=== PATIENT | female | born 1935 | race Caucasian/White ===

== ENCOUNTER 2019-11-09 09:36 | Emergency (ER) | payer MEDICARE, SELFPAY ==
--- NOTE | ~2019-11-09 | CT_ITS ---
EXAMINATION: CT brain wo con INDICATION: Headache and dizziness COMPARISON: None TECHNIQUE: Standard unenhanced head CT. The dose-length product (DLP) was 605.33 mGy-cm. The mA was a djusted according to patient size. Iterative reconstruction technique was employed. FINDINGS: There is no acute intraparenchymal hemorrhage. No evidence of mass lesion. No evidence of a cute infarction. There is mild periventricular and subcortical hypodensity probably related to small vessel ischemic disease. There is mild prominence of the sulci and ventricles related to cerebral atr ophy. Intracranial calcified cerebral atherosclerosis is noted. There are no extra-axial collections. There is no mass effect or midline shift. The orbits and soft tissues are unremarkable. The visuali zed sinuses and mastoid air cells are well aerated. IMPRESSION: 1. No acute intracranial abnormality. 2. Age related findings. Reviewed, dictated and finalized at location A.
[2019-11-09 09:36] VITALS: BP 162/84; PULSE 108; RESP 20; TEMP 36.9; O2SAT 96
[2019-11-09] MEDS: SODIUM CHLORIDE 0.9% IV 1,000 ML 999 ML IV CONT (10:00)
[2019-11-09] MEDS: MECLIZINE HCL 25 MG TABLET PO (10:03)
--- NOTE | 2019-11-09 10:03 | ED.DIZZY ---
HPI - Dizziness General Chief Complaint: Dizziness Stated Complaint: DIZZY/ECKERT/N/V/D Time Seen by Provider: 11/09/19 09:40 History of Present Illness HPI Narrative: Patient is an 84-year-old female who presents the ER with dizziness. Ongoing for last 3 days. Rotational dizziness with nausea vomiting. Occasional sweats. No fever/chills/sweats. She is without runny nose/sore throat/productive cough. No ringing in the ears. Has not had similar symptoms before. Associated with a frontal headache that is nonradiating. Related Data Home Medications Medication Instructions Recorded Confirmed I-Caps 11/09/19 allopurinol 11/09/19 amlodipine 11/09/19 latanoprost 11/09/19 pravastatin 11/09/19 Allergies Allergy/AdvReac Type Severity Reaction Status Date / Time adhesive tape Allergy Unknown Verified 11/21/15 15:09 azithromycin Allergy Unknown Vomiting Verified 01/02/18 11:20 Review of Systems Review of Systems: All systems reviewed & are unremarkable except as noted in HPI and below Constitutional: Constitutional: Denies chills, Denies fever(s) and Denies weakness ENT: Reports vertigo, Reports dizziness, Denies nasal congestion and Denies sore throat Respiratory: Respiratory: Denies dyspnea and Denies wheezing Gastrointestinal: Gastrointestinal: Reports nausea and Reports vomiting Neurologic: Reports system reviewed and no additional complaints, except as documented PMFSH Past Medical History Medical History (Updated 11/09/19 @ 12:06 by Leeroy Briggs MD) Anxiety Chronic kidney disease, stage 4 (severe) CKD (chronic kidney disease), stage III Diverticulitis of large intestine without perforation or abscess Glaucoma Gout History of breast cancer Pure hypercholesterolemia Surgical History Surgical History (Updated 11/09/19 @ 12:04 by Leeroy Briggs MD) H/O mastectomy Family History Family History (Updated 02/22/16 @ 23:19 by DOCTOR UNKNOWN) Father Family history of diabetes mellitus in first degree relative Sibling Family history of diabetes mellitus in first degree relative Mother Family history of coronary artery disease Social History Social History Smoking status: Never smoker Alcohol intake: never Exam Narrative: Exam Narrative: GENERAL: Well-appearing, well-nourished, and in no acute distress. HEAD: Normocephalic, atraumatic. Eyes: PERRLA, EOMI, no nystagmus. ENT: Mucous membranes moist. TMs normal bilaterally. CHEST: Clear to auscultation. No respiratory distress. HEART: Regular rate and rhythm. Normal peripheral pulses. EXTREMITIES: Normal range of motion. No edema. SKIN: Warm, dry, no rash. NEURO: No focal deficits. Clear speech, no facial droop. Alert and oriented x3. Course Course Emergency Course: Has ambulated without issue here. Feels better with meclizine and IV fluid. Informed of results. Discharge home. Vital Signs Vital signs: Vital Signs Temperature 98.5 F 11/09/19 09:36 Pulse Rate 108 H 11/09/19 09:36 Respiratory Rate 20 11/09/19 09:36 Blood Pressure 162/84 H 11/09/19 09:36 Pulse Oximetry 96 11/09/19 09:36 Temperature 98.5 F 11/09/19 09:36 Pulse Rate 82 11/09/19 11:36 Respiratory Rate 18 11/09/19 11:36 Blood Pressure 149/74 H 11/09/19 11:36 Pulse Oximetry 99 11/09/19 11:36 MDM - Dizziness Lab Data Result diagrams: 11/09/19 10:04 11/09/19 10:59 Labs: Lab Results 11/09/19 11/09/19 11/09/19 Range/Units 10:04 10:59 11:36 WBC 8.4 (4.5-10.0) K/mm3 RBC 4.49 (4.2-5.4) M/mm3 Hgb 14.6 (12.0-15.0) g/dL Hct 44.5 (37.0-47.0) % MCV 99.1 (80-100) fl MCH 32.5 (26-34) pg MCHC 32.8 (32-36) g/dl RDW 12.9 (11.5-14.5) % Plt Count 206 (150-375) k/mm3 MPV 10.0 (7.4-10.4) fl Immature Gran % (Auto) 0.2 (0-0.5) % Neut % (Auto) 81.1 H (45.5-73.1) % Lymph % (Auto) 14.8 L (18.3-44.2) % Harrison % (Auto) 2.9 (2
[2019-11-09 10:12] LABS: Basophils Percent Auto 0.5 % (0.2-1.2); Eosinophils Percent Auto 0.5 % (0-4.4); Hematocrit 44.5 % (37.0-47.0); Hemoglobin 14.6 g/dL (12.0-15.0); Immature Granulocyte Absolute 0.02 K/mm3 (0.00-0.031); Immature Granulocyte Percent A 0.2 % (0-0.5); Lymphocytes Absolute Auto 1.24 K/mm3 (0.9-3.2); Lymphocytes Percent Auto 14.8 % (18.3-44.2); Mean Corpuscular HGB Conc 32.8 g/dl (32-36); Mean Corpuscular Hemoglobin 32.5 pg (26-34); Mean Corpuscular Volume 99.1 fl (80-100); Monocytes Absolute Auto 0.2 K/mm3 (0.1-0.6); Monocytes Percent Auto 2.9 % (2.6-8.5); Neutrophils Absolute Auto 6.8 K/mm3 (1.3-6.7); Neutrophils Percent Auto 81.1 % (45.5-73.1); Platelet Count Result 206 k/mm3 (150-375); Red Blood Count 4.49 M/mm3 (4.2-5.4); Red Cell Distribution Width 12.9 % (11.5-14.5); White Blood Count 8.4 K/mm3 (4.5-10.0)
[2019-11-09 11:23] LABS: Blood Urea Nitrogen 21 mg/dL (7-17); Calcium 10.5 mg/dL (8.4-10.2); Carbon Dioxide 27 mmol/L (22-30); Chloride 106 mmol/L (98-107); Estimated CRCL calculation 21 ml/min; Estimated Glomerular Filt Rate 36; Glucose 127 mg/dL (65-105); Sodium 139 mmol/L (137-145)
[2019-11-09 11:36] VITALS: BP 149/74; PULSE 82; RESP 18; O2SAT 99
[2019-11-09 11:44] LABS: Add Urine Microscopic? YES; Appearance Urine Clear (Clear); Bacteria Urine Trace /hpf; Bilirubin Urine Negative (Negative); Blood Urine Negative (Negative); Color Urine Straw (Yellow); Glucose Urine UA Negative (Negative); Ketones Urine Negative (Negative); Leukocyte Esterase Ur Negative LEU/UL (Negative); Nitrate Urine Negative (Negative); Protein Urine 3+ mg/dL (Negative); RBC Urine 0-2 /hpf (0-2); Specific Grav Ur 1.009 (1.001-1.035); Squamous Epithelial Cell Urine Rare /hpf (Few); Urobilinogen Urine Negative mg/dL (<2.0); WBC Urine 0-3 /hpf
[2019-11-09 12:28] VITALS: BP 115/87; PULSE 78; RESP 16; O2SAT 97
[2019-11-09 12:31] VITALS: BP 120/88; PULSE 74; RESP 18; TEMP 36.7; O2SAT 99
== END 2019-11-09 12:32 | disposition home or self-care (01) ==
PROVIDERS: Emergency Provider Emergency Medicine; PCP Family Medicine
DX: H81.10 Benign paroxysmal vertigo, unspecified ear (principal); N18.4 Chronic kidney disease, stage 4 (severe); H40.9 Unspecified glaucoma; M10.9 Gout, unspecified; E78.00 Pure hypercholesterolemia, unspecified; Z85.3 Personal history of malignant neoplasm of breast; Z90.10 Acquired absence of unspecified breast and nipple
CPT/HCPCS: 36415; 70450; 80048; 81001; 85025; 96360; 99284; A9270; J7030

== ENCOUNTER 2019-11-11 10:07 | Emergency (ER) | payer MEDICARE, SELFPAY ==
--- NOTE | 2019-11-11 10:08 | ECG_ITS ---
Measurements Intervals [place] Rate: 90 P: 60 DE: 173 QRS: -4 QRSD: 72 T: 3 QT: 341 QTc: 419 Interpretive Statements SINUS RHYTHM LOW QRS VOLTAGE IN PRECORDIAL LEADS BORDERLINE T WAVE ABNORMALITY- INFERIOR LEADS BASELINE ARTIFACT- III, AVF, V4-V5 BORDERLINE ECG Electronically Signed On 11-11-2019 11:37:19 CDT by Lex Dent D.O.
[2019-11-11 10:10] VITALS: BP 179/76; PULSE 91; RESP 22; TEMP 36.8; O2SAT 95
[2019-11-11] MEDS: MECLIZINE HCL 12.5 MG TABLET PO (11:23)
--- NOTE | 2019-11-11 13:10 | ED.GENADULT ---
HPI - General Adult General Chief complaint: Dizziness Stated complaint: DIZZINESS,NAUSEA Time Seen by Provider: 11/11/19 10:11 History of Present Illness HPI narrative: Patient is an 84-year-old female who presents ER with dizziness and nausea. Patient has recently been seen for vertigo. She had sudden onset vertigo symptoms this morning after getting out of bed. She took her meclizine and her Zofran but vomited 20 minutes later. Her vertigo is more persistent that has been in the past when it was only lasting a couple seconds. She opted to come here to be evaluated. No new symptoms outside of the dizziness. She has had some whooshing sounds in her right ear that sounds like water but has had no ear drainage or ear pain. Related Data Home Medications Medication Instructions Recorded Confirmed I-Caps 11/09/19 allopurinol 11/09/19 amlodipine 11/09/19 latanoprost 11/09/19 pravastatin 11/09/19 Allergies Allergy/AdvReac Type Severity Reaction Status Date / Time adhesive tape Allergy Unknown Verified 11/21/15 15:09 azithromycin Allergy Unknown Vomiting Verified 01/02/18 11:20 Review of Systems Review of Systems: All systems reviewed & are unremarkable except as noted in HPI and below ENT: Reports vertigo Comments: Swishing sounds in right ear. Gastrointestinal: Gastrointestinal: Reports nausea and Reports vomiting PMFSH Past Medical History Medical History (Updated 11/11/19 @ 13:14 by Leeroy Briggs MD) Anxiety Chronic kidney disease, stage 4 (severe) CKD (chronic kidney disease), stage III Diverticulitis of large intestine without perforation or abscess Glaucoma Gout History of breast cancer Pure hypercholesterolemia Surgical History Surgical History (Updated 11/09/19 @ 12:04 by Leeroy Briggs MD) H/O mastectomy Family History Family History (Updated 02/22/16 @ 23:19 by DOCTOR UNKNOWN) Father Family history of diabetes mellitus in first degree relative Sibling Family history of diabetes mellitus in first degree relative Mother Family history of coronary artery disease Social History Social History Smoking status: Never smoker Alcohol intake: never Gender identity (if verbalized by the patient): Female Exam Narrative: Exam Narrative: GENERAL: Well-appearing, well-nourished, and in no acute distress. HEAD: Normocephalic, atraumatic. EYES: PERRL and EOMI. no nystagmus. ENT: Mucous membranes moist. TMs normal bilaterally without erythema or evidence of perforation. No purulence sitting behind the tympanic membrane. Skin cerumen in external ear canals bilaterally. NECK: Supple. CHEST: Clear to auscultation. No respiratory distress. HEART: Regular rate and rhythm. Normal peripheral pulses. EXTREMITIES: Normal range of motion. No edema. NEURO: Alert and oriented x3. Course Course Emergency Course: Feels much better. Discharge home. Recommend taking meclizine scheduled instead of as needed. Vital Signs Vital signs: Vital Signs Temperature 98.2 F 11/11/19 10:10 Pulse Rate 91 11/11/19 10:10 Respiratory Rate 22 H 11/11/19 10:10 Blood Pressure 179/76 H 11/11/19 10:10 Pulse Oximetry 95 11/11/19 10:10 Temperature 98.2 F 11/11/19 10:10 Pulse Rate 91 11/11/19 10:10 Respiratory Rate 22 H 11/11/19 10:10 Blood Pressure 179/76 H 11/11/19 10:10 Pulse Oximetry 95 11/11/19 10:10 Medical Decision Making Vital Signs Vital Signs: Vital Signs Temperature 98.2 F 11/11/19 10:10 Pulse Rate 91 11/11/19 10:10 Respiratory Rate 22 H 11/11/19 10:10 Blood Pressure 179/76 H 11/11/19 10:10 Pulse Oximetry 95 11/11/19 10:10 Temperature 98.2 F 11/11/19 10:10 Pulse Rate 91 11/11/19 10:10 Respiratory Rate 22 H 11/11/19 10:10 Blood Pressure 179/76 H 11/11/19 10:10 Pulse Oximetry 95 11/11/19 10:10 Discharge Plan Discharge Clinical Impression: Vertigo Patient Disposition: Home, Self-Care Condi
[2019-11-11 13:20] VITALS: BP 136/69; PULSE 80; RESP 15; O2SAT 95
== END 2019-11-11 13:23 | disposition home or self-care (01) ==
PROVIDERS: Emergency Provider Emergency Medicine; PCP Family Medicine
DX: R42 Dizziness and giddiness (principal); N18.4 Chronic kidney disease, stage 4 (severe); E78.00 Pure hypercholesterolemia, unspecified; M10.9 Gout, unspecified; H40.9 Unspecified glaucoma; Z85.3 Personal history of malignant neoplasm of breast; Z90.10 Acquired absence of unspecified breast and nipple; R94.31 Abnormal electrocardiogram [ECG] [EKG]
CPT/HCPCS: 93005; 99283; A9270

== ENCOUNTER 2020-11-02 11:45 | Outpatient (CLI) | payer MEDICARE, SELFPAY ==
--- NOTE | ~2020-11-02 | XR_ITS ---
EXAMINATION: XR abdomen/kub 1V DATE: 11/02/2020 12:21 INDICATION: Diarrhea, unspecified. TECHNIQUE: A supine view of the abdomen on 2 radiographs was obtained. COMPARISON: None. FINDINGS: There are no dilated loops of bowel. There is a small volume of stool in the colon. Surgica l clips in the right upper quadrant are likely from cholecystectomy. Calcifications in the pelvis are likely phleboliths. IMPRESSION: 1. Normal bowel gas pattern. Reviewed, dictated and finalized at location A.
[2020-11-02 12:23] LABS: Alanine Aminotransferase 21 U/L (4-35); Albumin Level 4.2 g/dL (3.5-5.1); Alkaline Phosphatase 53 U/L (38-126); Anion Gap 8 mmol/L (8-16); Aspartate Amino Transferase 35 U/L (14-36); Bilirubin,Total 0.5 mg/dL (0.2-1.3); Blood Urea Nitrogen 26 mg/dL (7-17); Calcium 9.6 mg/dL (8.4-10.2); Carbon Dioxide 24 mmol/L (22-30); Chloride 107 mmol/L (98-107); Estimated Glomerular Filt Rate 25; Glucose 120 mg/dL (65-105); Sodium 139 mmol/L (137-145)
== END 2020-11-02 11:46 | disposition home or self-care (01) ==
PROVIDERS: PCP Family Medicine; Visit Provider Nurse Practitioner Family
DX: R19.7 Diarrhea, unspecified (principal); N18.4 Chronic kidney disease, stage 4 (severe)
CPT/HCPCS: 36415; 74018; 80053

== ENCOUNTER → 2021-02-18 09:14 | Outpatient (REF) | payer MEDICARE, SELFPAY | LOC: ANHLAB 09:14 | PROVIDERS: PCP Family Medicine; Visit Provider Nurse Practitioner | DX: C44.329 Squamous cell carcinoma of skin of other parts of face (principal); C44.311 Basal cell carcinoma of skin of nose | CPT/HCPCS: 88305; 88331 ==

== ENCOUNTER 2021-12-25 14:02 | Outpatient (CLI) | payer MEDICARE, SELFPAY ==
--- NOTE | 2021-12-25 14:06 | ECHO_ITS ---
Patient Info Name: Ruth Jackson Age: 86 years : 1935 Gender: Female Ht: 62 in Wt: 136 lbs BSA: 1.65 m2 HR: 68 bpm BP: 144 / 56 mmHg Technical Quality: Fair Exam Date: 12/25/2021 2:44 PM Exam Location: [facility] Patient Status: Outpatient Admit Date: 12/25/2021 Staff Ordering Physician: Zoey Walker Cosmetic Account Coordinator: Kannna Washington RDCS, RT Attending Provider: Zoey Walker Referring Physician: Aaron REYES; Exam Type: CA echo doppler color flow Study Info Indications R01.1 - Cardiac murmur, unspecified Complete two-dimensional, color flow and Doppler transthoracic echocardiogram is performed. Strain analysis performed. Summary 1. Complete two-dimensional, color flow and Doppler transthoracic echocardiogram is performed. 2. Left ventricular chamber dimension is normal. 3. Left ventricular systolic function is normal, estimated at 60-65%. 4. The left ventricular diastolic function is grade I diastolic dysfunction. 5. E/e' 12.4 is mildly elevated. 6. Global longitudinal strain is abnormal at -14.7%. 7. There is mild aortic valve sclerosis. 8. There is mild aortic valve stenosis based on a peak velocity of 156 cm/s, mean gradient of 5 mmHg, and aortic valve area of 1.8 cm2. Left Ventricle Global longitudinal strain is abnormal at -14.7%. Left ventricular chamber dimension is normal. Left ventricular systolic function is normal, estimated at 60-65%. The left ventricular diastolic function is grade I diastolic dysfunction. E/e' 12.4 is mildly elevated. Right Ventricle Right ventricular systolic function is normal and with normal TAPSE 2.1 cm. Right ventricular chamber dimension is normal. Left Atria Left atrial chamber dimension is normal. Right Atria Right atrial chamber dimension is normal. Aortic Valve There is mild aortic valve stenosis based on a peak velocity of 156 cm/s, mean gradient of 5 mmHg, and aortic valve area of 1.8 cm2. The aortic valve is not well visualized. There is mild aortic valve sclerosis. There is no aortic valve regurgitation. Pulmonic Valve There is no pulmonic regurgitation. Mitral Valve There is no mitral valve stenosis. There is no mitral valve regurgitation. Tricuspid Valve There is no tricuspid valve regurgitation. Pericardium/Pleural There is no pericardial effusion. Inferior Vena Cava Normal inferior vena cava with >50% collapse upon inspiration consistent with normal right atrial pressure, 5 mmHg. Aorta The aortic root size at the sinus of Valsalva is normal. Left Ventricular Outflow Tract Name Value Normal LVOT 2D LVOT Diameter 1.9 cm LVOT Doppler LVOT Peak Gradient 4 mmHg LVOT Mean Gradient 2 mmHg LVOT VTI 24 cm LVOT VTI/AV VTI Ratio 0.7 LVOT Stroke Volume 65 ml LVOT CO 4.5 l/min LVOT CI 2.7 l/min/m2 Pulmonic Valve
== END 2021-12-25 14:03 | disposition home or self-care (01) ==
PROVIDERS: PCP Family Medicine; Visit Provider Nurse Practitioner Family
DX: R01.1 Cardiac murmur, unspecified (principal); I35.0 Nonrheumatic aortic (valve) stenosis
CPT/HCPCS: 93306

== ENCOUNTER 2023-02-05 14:00 | Outpatient (CLI) | payer MEDICARE, SELFPAY ==
[2023-02-05 15:06] LABS: Basophils Absolute Auto 0.1 K/mm3 (0.0-0.1); Basophils Percent Auto 0.9 % (0.2-1.2); Eosinophils Absolute Auto 0.2 K/mm3 (0-0.3); Eosinophils Percent Auto 2.7 % (0-4.4); Hematocrit 40.1 % (37.0-47.0); Immature Granulocyte Absolute 0.02 K/mm3 (0.00-0.031); Immature Granulocyte Percent A 0.3 % (0-0.5); Lymphocytes Absolute Auto 1.68 K/mm3 (0.9-3.2); Lymphocytes Percent Auto 25.1 % (18.3-44.2); Mean Corpuscular HGB Conc 32.4 g/dl (32-36); Mean Corpuscular Hemoglobin 33.1 pg (26-34); Mean Platelet Volume 9.7 fl (7.4-10.4); Monocytes Absolute Auto 0.5 K/mm3 (0.1-0.6); Monocytes Percent Auto 6.9 % (2.6-8.5); Neutrophils Absolute Auto 4.3 K/mm3 (1.3-6.7); Neutrophils Percent Auto 64.1 % (45.5-73.1); Platelet Count Result 230 k/mm3 (150-375); Red Blood Count 3.93 M/mm3 (4.2-5.4); Red Cell Distribution Width 12.5 % (11.5-14.5); White Blood Count 6.7 K/mm3 (4.5-10.0)
[2023-02-05 15:38] LABS: Appearance Urine Clear (Clear); Bacteria Urine None Seen /hpf; Bilirubin Urine Negative (Negative); Blood Urine Negative (Negative); Color Urine Yellow (Yellow); Glucose Urine UA Negative (Negative); Ketones Urine Trace mg/dL (Negative); Leukocyte Esterase Ur Trace LEU/UL (Negative); Nitrate Urine Negative (Negative); Protein Urine 3+ mg/dL (Negative); RBC Urine 0-2 /hpf (0-2); Specific Grav Ur 1.017 (1.001-1.035); Squamous Epithelial Cell Urine None seen /hpf (Few); Urobilinogen Urine 0.2 mg/dL (<2.0); WBC Urine 0-5 /hpf; pH Urine 5.5 (5.0-9.0)
[2023-02-05 15:45] LABS: Add Urine Microscopic? YES
[2023-02-05 16:21] LABS: Alanine Aminotransferase 19 U/L (6-35); Albumin Level 4.5 g/dL (3.5-5.1); Alkaline Phosphatase 69 U/L (38-126); Anion Gap 7 mmol/L (8-16); Aspartate Amino Transferase 35 U/L (14-36); Bilirubin,Total 0.5 mg/dL (0.2-1.3); Blood Urea Nitrogen 42 mg/dL (7-17); Calcium 11.1 mg/dL (8.4-10.2); Carbon Dioxide 27 mmol/L (22-30); Chloride 103 mmol/L (98-107); Estimated Glomerular Filt Rate 22; Glucose 110 mg/dL (65-110); Potassium 5.1 mmol/L (3.4-5.0); Sodium 137 mmol/L (137-145)
== END 2023-02-05 14:01 | disposition home or self-care (01) ==
PROVIDERS: PCP Family Medicine; Visit Provider Family Medicine
DX: N39.0 Urinary tract infection, site not specified (principal); R53.83 Other fatigue
CPT/HCPCS: 36415; 80053; 81001; 84443; 85025

== ENCOUNTER 2023-02-26 14:14 | Outpatient (CLI) | payer MEDICARE, SELFPAY ==
--- NOTE | ~2023-02-26 | DEXA_ITS ---
Bone Density Report Name: MARISOL CHATMAN Age: 87 Sex: Female Ethnicity: White Date of : 1935 Indication: postmenopausal; screening for osteoporosis; height loss; prior fracture; cancer; end stage renal disease; Referring Provider: JOE DEJESUS Study: Bone densitometry was performed. Exam Date: February 26, 2023 Accession number: [id number] Bone Density: Region BMD T-score Z-score Classification AP Spine(L1-L4) 1.162 1.0 3.9 Normal Femoral Neck (Left) 0.642 -1.9 0.7 Osteopenia Total Hip (Left) 0.836 -0.9 1.5 Normal Femoral Neck (Right) 0.698 -1.4 1.2 Osteopenia Total Hip (Right) 0.835 -0.9 1.5 Normal Total Hip Mean 0.836 -0.9 1.5 Normal World Health Organization criteria for BMD impression classify patients as: Normal (T-score at or above -1.0), Osteopenia (T-score between -1.0 and -2.5), or Osteoporosis (T-score at or below -2.5). 10-year Fracture Risk(1): Major Osteoporotic Fracture 20% Hip Fracture 5.6% Reported Risk Factors: [place] (), Neck BMD=0.642, BMI=25.7, previous fracture (1) FRAX(R) Version 3.08. Fracture probability calculated for an untreated patient. Fracture probability may be lower if the patient has received treatment. Clinical Information Provided by Patient: Has had a low trauma fracture Has used the following medications: Vitamin D, Calcium Has the following medical conditions: Cancer, End stage renal disease Patient maximum height was 63 Menopause Age: 45 No regular weight bearing exercise Does not regularly consume dairy products Onset of menses at age 14 Number of children 4 Impression: The patient has low bone mass, based on the Left Femoral Neck T-score. The patient has an estimated ten-year risk of hip fracture of 5.6% and an estimated ten-year risk of major fracture of 20%, based on the WHO FRAX algorithm. The patient has risk factors, including: previous fracture. Discussion: BONE DENSITY IS LOW AT ONE OR MORE SKELETAL SITES. THE PATIENT'S BMD AND CLINICAL RISK FACTORS CONTRIBUTE TO THIS PATIENT'S HIGH RISK OF FRACTURE. This patient's lowest T-score is low at one or more skeletal sites. It meets the World Health Organization's (WHO) criteria for ?low bone mass? (T-score between -1.0 and -2.5). The patient's 10-year risk of hip fracture and 10 year risk of a major osteoporotic fracture as calculated by FRAX exceeds the threshold where pharmacological therapy is recommended by the National Osteoporosis Foundation (NOF). However, all treatment decisions require clinical judgment and consideration of individual patient factors, including patient preferences, comorbidities, previous drug use, risk factors not captured in the FRAX model (e.g., frailty, falls, vitamin D deficiency, increased bone turnover, interval significant decli
== END 2023-02-26 14:15 | disposition home or self-care (01) ==
PROVIDERS: PCP Family Medicine; Visit Provider Physician Assistant
DX: Z78.0 Asymptomatic menopausal state (principal); M85.89 Other specified disorders of bone density and structure, multiple sites
CPT/HCPCS: 77080

== ENCOUNTER 2023-03-09 22:42 | Emergency (ER) | payer MEDICARE, SELFPAY ==
[2023-03-09] VITALS (9 sets, daily range): BP systolic 172–183; BP diastolic 57–89; PULSE 82–99; RESP 14–19; TEMP 36.6–36.9; O2SAT 96–97
--- NOTE | ~2023-03-09 | XR_ITS ---
EXAMINATION: XR chest 1V DATE: 03/10/2023 00:05 INDICATION: Chest tightness. TECHNIQUE: A single frontal view of the chest was obtained. COMPARISON: None. FINDINGS: There is mild atelectasis in left lower lung zone. No pleural effusion or pneumothorax. The heart size is normal. There are surgical clips in right axilla. IMPRESSION: 1. Mild atelectasis in left lower lung zone. Reviewed, dictated and finalized at location A.
--- NOTE | 2023-03-09 23:00 | ECG_ITS ---
Measurements Intervals [place] Rate: 95 P: 53 MN: 191 QRS: 9 QRSD: 76 T: 8 QT: 339 QTc: 427 Interpretive Statements SINUS RHYTHM WITH OCCASIONAL VENTRICULAR PREMATURE COMPLEXES LOW QRS VOLTAGE IN PRECORDIAL LEADS [QRS DEFLECTION < 1.0 mV IN CHEST LEADS] COMPARED TO ECG 11/11/2019 10:10:33 NO SIGNIFICANT CHANGES Electronically Signed On 03-10-2023 14:38:14 CDT by Hannah Dexter M.D.
[2023-03-09 23:29] LABS: Basophils Absolute Auto 0.1 K/mm3 (0.0-0.1); Basophils Percent Auto 0.8 % (0.2-1.2); Eosinophils Absolute Auto 0.3 K/mm3 (0-0.3); Eosinophils Percent Auto 4.1 % (0-4.4); Hematocrit 37.4 % (37.0-47.0); Hemoglobin 12.2 g/dL (12.0-15.0); Immature Granulocyte Absolute 0.01 K/mm3 (0.00-0.031); Immature Granulocyte Percent A 0.2 % (0-0.5); Lymphocytes Absolute Auto 1.79 K/mm3 (0.9-3.2); Lymphocytes Percent Auto 28.3 % (18.3-44.2); Mean Corpuscular HGB Conc 32.6 g/dl (32-36); Mean Corpuscular Hemoglobin 33.2 pg (26-34); Mean Corpuscular Volume 101.6 fl (80-100); Mean Platelet Volume 9.6 fl (7.4-10.4); Monocytes Absolute Auto 0.7 K/mm3 (0.1-0.6); Monocytes Percent Auto 10.3 % (2.6-8.5); Neutrophils Absolute Auto 3.6 K/mm3 (1.3-6.7); Neutrophils Percent Auto 56.3 % (45.5-73.1); Platelet Count Result 209 k/mm3 (150-375); Red Blood Count 3.68 M/mm3 (4.2-5.4); Red Cell Distribution Width 12.8 % (11.5-14.5); White Blood Count 6.3 K/mm3 (4.5-10.0)
[2023-03-09 23:40] LABS: Alanine Aminotransferase 18 U/L (6-35); Albumin Level 4.2 g/dL (3.5-5.1); Alkaline Phosphatase 50 U/L (38-126); Anion Gap 6 mmol/L (8-16); Aspartate Amino Transferase 34 U/L (14-36); Bilirubin,Total 0.4 mg/dL (0.2-1.3); Blood Urea Nitrogen 47 mg/dL (7-17); Calcium 9.9 mg/dL (8.4-10.2); Carbon Dioxide 23 mmol/L (22-30); Chloride 107 mmol/L (98-107); Estimated CRCL calculation 14 ml/min; Estimated Glomerular Filt Rate 22; Glucose 124 mg/dL (65-110); Potassium 4.8 mmol/L (3.4-5.0); Sodium 136 mmol/L (137-145)
--- NOTE | 2023-03-09 23:54 | ED.GENADULT ---
HPI - General Adult General Chief complaint: Weakness <Kia Nelson PA-C - Last Filed: 03/10/23 03:01> Stated complaint: weakness, low blood pressure <Kia Nelson PA-C - Last Filed: 03/10/23 03:01> Time Seen by Provider: 03/09/23 23:34 <Kia Nelson PA-C - Last Filed: 03/10/23 03:01> History of Present Illness HPI narrative: 87-year-old female with a history of hypercholesterolemia, monoclonal gammopathy of unknown significance, hypertensive CKD stage IV, anxiety, secondary hyperparathyroidism, TIA reports for evaluation for generalized weakness x6 months. 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 Patient lives at home alone and has been 6 experiencing progressive generalized weakness for the past 6 months. Patient reports intermittent episodes of lightheadedness after exertion. States in October 2022, she had gotten out of the shower and felt lightheaded, was looking in the mirror to fix her hair and syncopized. She states she did hit her head on the bathtub. She did not seek evaluation after this fall and told her PCP about it approximately 1 month ago when she finally went to her PCP for evaluation for her generalized weakness and intermittent lightheadedness. Her PCP advised her to begin logging her blood pressure daily throughout the day. Patient states since then she has been taking her blood pressure 3 times a day and at times her systolic is 185 but can drop down to the 90s. She reports normally it is around 150. She states her blood pressure drops after she exerts herself and at that same time she will begin to feel lightheaded. States she usually sits down and props her feet up until the symptom subsides. Patient states that yesterday while she was doing the dishes, she developed 10 to 15 seconds of chest tightness which spontaneously resolved. States the pain did not radiate anywhere and was not associated with shortness of breath. The chest tightness resolved after 15 seconds and has not returned. She does state that at times she feels a fluttering in her chest but has not been diagnosed with arrhythmia. Patient reports she was placed on a 48-hour Holter monitor by her PCP last week without significant findings. She denies vision changes, focal numbness or weakness, abdominal pain, nausea or vomiting, diarrhea current chest pain or tightness, shortness of breath. Patient reports she has an appointment with her PCP in 4 days and is scheduled to see her engineering faculty in a month. <Kia Nelson PA-C - Last Filed: 03/10/23 03:01> Related Data Home medications: Home Medications Medication Instructions Recorded Confirmed I-Caps 11/09/19 02/05/23 latanoprost 0.005 % eye drops 11/09/19 02/05/23 <Kia Nelson PA-C - Last Filed: 03/10/23 03:01> Allergies/adverse reactions: Allergies Allergy/AdvReac Type Severity Reaction Status Date / Time adhesive tape Allergy Unknown Unknown Verified 02/05/23 13:27 azithromycin Allergy Unknown Vomiting Verified 02/05/23 13:27 <Kia Nelson PA-C - Last Filed: 03/10/23 03:01> Review of Systems Review of Systems: CONSTITUTIONAL: Denies fever, chills EYES: Denies visual changes, redness, or discharge. ENT: Denies rhinorrhea, congestion, sore throat, or otalgia. CARDIOVASCULAR: See HPI RESPIRATORY: Denies cough or dyspnea. GASTROINTESTINAL: Denies abdominal pain, nausea, vomiting, or diarrhea. GENITOURINARY: Denies dysuria or hematuria. SKIN: Denies rash or itching. MUSCULOSKELETAL: Denies back pain, joint pain, or myalgia. NEUROLOGIC: HPI PSYCHIATRIC: Denies anxiety or depression. <Kia Nleson PA-C - Last Filed: 03/10/23 03:01> [facility] Past Medical History Medical History: Medical History Anxiety Chronic kidney disease, stage 4 (severe) CKD (chronic kidney disease), stage III Diverticulitis of large
[2023-03-10] VITALS (19 sets, daily range): BP systolic 155–205; BP diastolic 73–85; PULSE 70–87; RESP 11–21; TEMP 36.6; O2SAT 93–97
[2023-03-10 00:54] LABS: Appearance Urine Clear (Clear); Bacteria Urine None Seen /hpf; Bilirubin Urine Negative (Negative); Blood Urine Negative (Negative); Color Urine Yellow (Yellow); Glucose Urine UA Negative (Negative); Ketones Urine Negative (Negative); Leukocyte Esterase Ur Trace LEU/UL (Negative); Nitrate Urine Negative (Negative); Non Pathogenic Casts 0-2; Protein Urine 1+ mg/dL (Negative); RBC Urine 0-2 /hpf (0-2); Specific Grav Ur 1.005 (1.001-1.035); Squamous Epithelial Cell Urine None seen /hpf (Few); Urobilinogen Urine 0.2 mg/dL (<2.0); WBC Urine 0-5 /hpf; pH Urine 5.5 (5.0-9.0)
[2023-03-10 00:55] LABS: Add Urine Microscopic? YES
[2023-03-10 00:58] LABS: Troponin I < 0.012 ng/mL (0.000-0.034)
[2023-03-10 01:22] LABS: Influenza A QL RT-PCR Negative (Negative); Influenza B QL RT-PCR Negative (Negative); SARS-CoV-2 RNA PCR Negative (Negative)
--- NOTE | 2023-03-10 01:56 | PC.NURSE ---
Patient ambulated three times around the nurses station on pulse ox. Lowest recorded pulse ox 91%, patient stayed around 94-96% while ambulating. Patient did complain of SOB upon going back to the ED room and sitting on the stretcher.
== END 2023-03-10 02:09 | disposition home or self-care (01) ==
PROVIDERS: Emergency Medicine; Emergency Provider Physician Assistant; PCP Family Medicine
DX: R53.1 Weakness (principal); Z20.822 Contact with and (suspected) exposure to COVID-19; I12.9 Hypertensive chronic kidney disease with stage 1 through stage 4 chronic kidney disease, or unspecified chronic kidney disease; N18.4 Chronic kidney disease, stage 4 (severe); E78.00 Pure hypercholesterolemia, unspecified; N25.81 Secondary hyperparathyroidism of renal origin; D47.2 Monoclonal gammopathy; M10.9 Gout, unspecified; H40.9 Unspecified glaucoma; Z85.3 Personal history of malignant neoplasm of breast; Z86.73 Personal history of transient ischemic attack (TIA), and cerebral infarction without residual deficits; Z90.11 Acquired absence of right breast and nipple; Z90.49 Acquired absence of other specified parts of digestive tract; I49.3 Ventricular premature depolarization
CPT/HCPCS: 36415; 71045; 80053; 81001; 84484; 85025; 87636; 93005; 99284

== ENCOUNTER 2024-03-14 15:21 | Outpatient (CLI) | payer MEDICARE, SELFPAY ==
[2024-03-14 15:36] LABS: Hematocrit 39.7 % (37.0-47.0); Mean Corpuscular HGB Conc 32.7 g/dl (32-36); Mean Corpuscular Hemoglobin 33.3 pg (26-34); Mean Corpuscular Volume 101.8 fl (80-100); Mean Platelet Volume 9.8 fl (7.4-10.4); Platelet Count Result 199 k/mm3 (150-375); White Blood Count 5.5 K/mm3 (4.5-10.0)
[2024-03-14 15:40] LABS: Add Urine Microscopic? YES; Appearance Urine Clear (Clear); Bacteria Urine None Seen /hpf; Bilirubin Urine Negative (Negative); Blood Urine Negative (Negative); Color Urine Yellow (Yellow); Glucose Urine UA Negative (Negative); Ketones Urine Negative (Negative); Leukocyte Esterase Ur Negative LEU/UL (Negative); Nitrate Urine Negative (Negative); Protein Urine 3+ mg/dL (Negative); RBC Urine 0-2 /hpf (0-2); Squamous Epithelial Cell Urine None Seen /hpf (Few); Urobilinogen Urine 0.2 mg/dL (<2.0); WBC Urine 0-5 /hpf (0-3); pH Urine 5.5 (5.0-9.0)
[2024-03-14 16:04] LABS: Alanine Aminotransferase 22 U/L (6-35); Albumin Level 4.2 g/dL (3.5-5.1); Alkaline Phosphatase 87 U/L (38-126); Anion Gap 10 mmol/L (4-12); Aspartate Amino Transferase 33 U/L (14-36); Bilirubin,Total 0.5 mg/dL (0.2-1.3); Blood Urea Nitrogen 29 mg/dL (7-17); Calcium 9.9 mg/dL (8.4-10.2); Carbon Dioxide 27 mmol/L (22-30); Chloride 101 mmol/L (98-107); Estimated Glomerular Filt Rate 27; Glucose 103 mg/dL (65-110); Sodium 138 mmol/L (137-145)
== END 2024-03-14 15:22 | disposition home or self-care (01) ==
PROVIDERS: PCP Family Medicine; Visit Provider Physician Assistant Medical
DX: R55 Syncope and collapse (principal); R51.9 Headache, unspecified; F41.9 Anxiety disorder, unspecified; I12.9 Hypertensive chronic kidney disease with stage 1 through stage 4 chronic kidney disease, or unspecified chronic kidney disease; N18.9 Chronic kidney disease, unspecified
CPT/HCPCS: 36415; 80053; 81001; 84443; 85027

== ENCOUNTER 2024-03-15 13:35 | Outpatient (CLI) | payer MEDICARE, SELFPAY ==
--- NOTE | ~2024-03-15 | CT_ITS ---
CT cervical spine wo con Ordering provider: Andreina Dennis PA-C History: . R55 - Syncope and collapse . Comparison: None. Technique: CT of the cervical spine was performed without contrast. Sagittal and coronal reformatted images were also obtained and reviewed. Automated exposure control and iterative reconstruction jennifer hnique were employed. The dose-length product was 173.90 mGy-cm. FINDINGS: VERTEBRAE: Minimal anterolisthesis at the level of C4-C5. No subluxation or acute fracture. The occip ital condyles are intact. Cystic changes seen at the base of the dens which is most likely degenerat pati. DISC SPACES: Narrowing of the disc C5-C6 and C6-C7. Multilevel facet joint disease. Multilevel uncove rtebral joint osteoarthritic changes. Narrowing of the left intervertebral foramen at the level of C2 -C3 bilaterally at the level of C4-C5, C5-C6 and C6-7. PARASPINOUS SOFT TISSUES: Normal. Atherosclerotic changes of the intracranial left vertebral artery.L eft carotid calcification. IMPRESSION: No acute osseous abnormality cervical spine. Multilevel degenerative disc Reviewed, dictated and finalized at location A.
--- NOTE | ~2024-03-15 | XR_ITS ---
[id number] Ordering provider: Andreina Dennis PA-C History: . R55 - Syncope and collapse, ,FALL, POSSIBLE WHIPLASH . Comparison: None. FINDINGS: VERTEBRAL BODIES: No signs is seen over the dens of C2 and the lateral view. Fracture cannot be exclu ded. Otherwise, Normal height and alignment.. DISK SPACES: Multilevel degenerative disc disease involving C5-C6, C6-C7 and C7-T1. Multilevel facet joint disease. Multilevel uncovertebral joint osteoarthritic changes. PARASPINOUS SOFT TISSUES: No pr evertebral soft tissue swelling. IMPRESSION: Possible lucency over the dens of C2 on the lateral view. CT is advised. Multilevel degenerative disc disease. Andreina Dennis PA-C notified with the result at the time of dictation at 2:16 PM on March 15, 2024. Reviewed, dictated and finalized at location A. IMPRESSION: Possible lucency over the dens of C2 on the lateral view. CT is advised. Multilevel degenerative disc disease. Andreina Dennis PA-C notified with the result at the time of dictation at 2:16 PM on March 15.
--- NOTE | ~2024-03-15 | CT_ITS ---
CT brain wo con Ordering provider: Andreina Dennis PA-C History: 88 years Female with . R55 - Syncope and collapse . Comparison: November 08, 2021 Technique: CT of the head without contrast. The dose-length product was 605.33 mGy-cm. FINDINGS: BRAIN PARENCHYMA AND CSF SPACES: Mild leukoaraiosis and diffuse cortical atrophy. Mild atheromatous d isease. No midline shift, mass effect or hemorrhage. The brain parenchyma and CSF spaces are otherwi se normal. VISUALIZED PARANASAL SINUSES: Well aerated. MASTOIDS: Well aerated. BONES: The bones appear intact. SOFT TISSUES: Visualized nasopharynx is normal. Superficial soft tissues are normal. IMPRESSION: No acute intracranial findings. Reviewed, dictated and finalized at location A.
== END 2024-03-15 13:36 | disposition home or self-care (01) ==
PROVIDERS: PCP Family Medicine; Visit Provider Physician Assistant Medical
DX: R55 Syncope and collapse (principal); R51.9 Headache, unspecified; S09.90XA Unspecified injury of head, initial encounter; X58.XXXA Exposure to other specified factors, initial encounter; R29.898 Other symptoms and signs involving the musculoskeletal system; M50.30 Other cervical disc degeneration, unspecified cervical region
CPT/HCPCS: 70450; 72040; 72125

== ENCOUNTER 2024-10-04 16:06 | Outpatient (CLI) | payer MEDICARE, SELFPAY ==
--- NOTE | ~2024-10-04 | XR_ITS ---
CHEST RADIOGRAPH, PA AND LATERAL CLINICAL HISTORY: R05.9 - Cough, unspecified FOR 6 MONTHS . COMPARISON: 03/09/2023 TECHNIQUE: PA and lateral views of the chest. FINDINGS The cardiomediastinal silhouette is unremarkable. Multiple surgical clips projecting over the right axilla. Prosthetic projecting over the right breast. Visualized lung quintana are clear. IMPRESSION: No focal infiltrate or effusion. Reviewed, dictated and finalized at location A.
--- OUTSIDE RECORDS SUMMARY | 2024-10-04 18:01 | XMS_ITS | Clinical Summary ---
Author Organization [facility] Address [address] [place] [address] Phone Care Team Providers Care Scale Technician Name Role Phone Nicolas Sandhu MD Primary Care Provider [phone] Allergies Active Allergy Reactions Criticality Noted Date Comments Codeine Other (see comments) Low 08/19/2019 GI upset Medications Medication Sig Dispensed Refills Start Date End Date Status pravastatin (PRAVACHOL) 40 MG tablet 1 tablet (40 mg) orally daily 0 09/01/2016 Active calcium carbonate (CALTRATE 600) 1500 (600 Ca) MG tablet 1 isbell 0 03/31/2018 Active lisinopril (PRINIVIL,ZESTRIL) 20 MG tablet 1 tablet (20 mg) orally daily 0 09/01/2016 Active Multiple Vitamin (MULTIVITAMIN) capsule 1 daily 0 03/31/2018 Active allopurinol (ZYLOPRIM) 100 MG tablet 1 tablet (100 mg) orally daily 0 09/01/2016 Active latanoprost (XALATAN) 0.005 % ophthalmic solution 1 drop daily 0 03/31/2018 Act pati Multiple Vitamins-Minerals (ICAPS AREDS 2 PO) Take by mouth Act pati ketorolac (ACULAR) 0.5 % ophthalmic solution INSTILL 1 DROP INTO AFFECTED EYE(S) THREE TIMES DAILY STARTING 2 DAYS PRIOR TO SURGERY CONTINUE THREE TIMES A DAY FOR 1 WEEK THEN TWO TIMES 02/07/2020 Active ofloxacin (OCUFLOX) 0.3 % ophthalmic solution INSTILL 1 DROP INTO AFFECTED EYE(S) THREE TIMES DAILY STARTING 2 DAYS PRIOR TO SURGERY CONTINUE FOR 1 WEEK AFTER SURGERY THEN STOP 02/07/2020 Active omega-3 acid ethyl esters (LOVAZA) 1 g capsule Take by mouth 03/31/2018 Active prednisoLONE acetate (PRED FORTE) 1 % ophthalmic suspension AFTER SURGERY INSTILL 1 DROP INTO AFFECTED EYE 3 TIMES A DAY FOR 1 WEEK THEN 2 TIMES A DAY FOR 3 WEEKS THEN STOP. 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 09/01/2016 Immunizations Name Administration Dates Next Due Influenza Split High Dose Preservative Free IM 0 08/11/2019 Influenza, Unspecified 04/26/2018 Pneumococcal Polysaccharide 07/27/2012 Zoster 08/07/2017 Family History Medical History Relation Comments Diabetes mellitus Father Diabetes mellitus Sibling Kidney disease Neg Hx Kidney stone Neg Hx Relation Status Comments Father Sibling Social History Tobacco Use Types Packs/Day Years Used Date Smoking Tobacco: Never Smokeless Tobacco: Never Alcohol Use Standard Drinks/Week Comments Not Currently 0 (1 standard drink = 0.6 oz pur e alcohol) Sex and Gender Information Value Date Recorded Sex Assigned at Not on file Gender Identity Not on file Sexual Orientation Not on file Last Filed Vital Signs Vital Sign Reading Time Taken Comments Blood Pressure 122/70 04/16/2022 2:21 PM CDT Pulse 72 04/16/2022 2:21 PM CDT Temperature 35.6 C (96 F) 04/16/2022 2:21 PM CDT Respiratory Rate - - Oxygen Saturation - - Inhaled Oxygen Concentration - - Weight 63.5 kg (140 lb) 04/16/2022 2:21 PM CDT Height 157.5 cm (5' 2 ) 04/16/2022 2:21 PM CDT Body Mass Index 25.61 04/16/2022 2:21 PM CDT Plan of Treatment Health Maintenance Due Date Last Done Comments Pneumococcal PPSV23/PCV13 65 + Years / Low and Medium Risk (2 of 3 - PCV) 07/27/2013 07/27/2012 Influenza Vaccine (#1) 2024 04/26/2018 Care Teams Scale Technician Relationship Specialty Start Date End Date Nicolas Sandhu MD [address] [facility] [address] [place] [address] PCP - General Internal Medicine 04/27/19
--- OUTSIDE RECORDS SUMMARY | 2024-10-04 18:01 | XMS_ITS | Referral Summary ---
Author Organization [facility] Address [address] [facility] [address] [place] [address] Phone Care Team Providers Care Silviculture Professor Name Role Phone Nicolas Sandhu MD Primary Care Provider Omari Lozada MD Unavailable [phone] Encounters Date Type Department Care Team Description 08/19/2024 Orders Only [facility] [address] [place] [address] [address] [place] [address] Marley Villegas RN MGUS (monoclonal gammopathy of unknown significance) (Primary Dx) 08/18/2024 3:00 PM TREASURY REPRESENTATIVE Office Visit [facility] [address] [place] [address] [address] [place] [address] Rocky Jones, MGUS (monoclonal gammopathy of unknown significance) (Primary Dx) 08/04/2024 Telephone [facility] [address] [place] [address] [address] [place] [address] Rica Myles CMA 07/15/2024 Telephone [facility] [address] [place] [address] [address] [place] [address] Chio Chen, NILO from Last 3 Months Allergies Active Allergy Reactions Criticality Noted Date Comments Codeine Phosphate Stomach upset Low 08/19/2019 GI upset Medications allopurinol (ZYLOPRIM) 100 mg tablet 05/19/2018 Active latanoprost (XALATAN) 0.005 % ophthalmic solution 07/12/2018 Active lisinopril (PRINIVIL,ZESTR [place]) 20 mg tablet 07/15/2018 Active calcium carbonate (OS-KARINA) 1,500 mg (600 mg of elemental calcium) tablet Take by mouth 03/31/2018 Active omega-3 fatty acids (LOVAZA) 1 gram capsule Take by mouth 03/31/2018 Active multivit with minerals/lutein (MULTIVITAMIN 50 PLUS ORAL) Take by mouth Active ketorolac (ACULAR) 0.5 % ophthalmic solution INSTILL ONE DROP INTO THE RIGHT EYE THREE TIMES DAILY FOR 1 MONTH THEN TWICE DAILY FOR 1 MONTH UNTIL APPT. 07/03/2020 Active pravastatin (PRAVACHOL) 40 mg tablet Take 1 tablet (40 mg total) by mouth daily 05/11/2023 Active amLODIPine (NORVASC) 5 mg tablet Take 1 tablet (5 mg total) by mouth daily Active Active Problems Problem Noted Date Diagnosed Date Syncope and collapse 03/21/2024 Other chest pain 11/30/2023 Premature atrial contractions 06/01/2023 Essential hypertension 04/23/2023 Hypotension due to drugs 04/23/2023 MGUS (monoclonal gammopathy of unknown significa nce) 08/14/2018 Immunizations Immunization Administration Dates Next Due Influenza, Trivalent, High D ose, Split, Preservative Free, Intramuscular 08/11/2019 Influenza, Unspecified 04/26/2018 Pneumococcal Polysaccharide PPV23 07/27/2012 ZOSTER LIVE 08/07/2017 Social History Tobacco Use Types Packs/Day Years Used Date Smoking Tobacco: Never Smokeless Tobacco: Never Tobacco Cessation:Counseling Given: Not Answered AUDIT-C Answer Date Recorded Q1: How often do you have a drink containing alcohol? Never 01/08/2024 Q2: How many drinks containi ng alcohol do you have on a typical day when you are drinking? Patient does not drink Q3: How often do you have si x or more drinks on one occasion? Never 01/08/2024 Comments Unknown Sex and Gender Information Value Date Recorded Sex Assigned at Not on file Legal Sex Female 11:56 AM TREASURY REPRESENTATIVE Gender Identity Not on file Sexual Orientation Not on file Last Filed Vital Signs Vital Sign Reading Time Taken Comments Blood Pressure 135/72 08/18/2024 2:54 PM TREASURY REPRESENTATIVE Pulse 64 08/18/2024 2:54 PM TREASURY REPRESENTATIVE Temperature 36.7 C (98 F) 08/18/2024 2:54 PM TREASURY REPRESENTATIVE Respiratory Rate 18 08/18/2024 2:54 PM TREASURY REPRESENTATIVE Oxygen Saturation 96% 08/18/2024 2:54 PM TREASURY REPRESENTATIVE Inhaled Oxygen Concentration - - Weight 66.2 kg (145 lb 14.4 oz) 08/18/2024 2:54 PM TREASURY REPRESENTATIVE Height 157.5 cm (5' 2 ) 08/18/2024 2:54 PM TREASURY REPRESENTATIVE w shoes Body Mass Index 26.69 08/18/2024 2:54 PM TREASURY REPRESENTATIVE Plan of Treatment Not on file Procedures Procedure Name Priority Date/Time Associated Diagnosis Comments IGA Routine 07/22/2024 1:04 PM TREASURY REPRESENTATIVE MGUS (monoclonal gammopathy of unknown significance) KAPPA/LAMBDA LIGHT CHAINS FREE WITH RATIO, SERUM Routine 07/22/2024 1:04 PM TREASURY REPRESENTATIVE MGUS (monoclonal gammopathy of unknown significance) CBC WITH AUTO DIFFERENTIAL Routine 07/22/2024 1:04 PM TREASURY REPRESENTATIVE MGUS (monoclonal gammopathy of unknown significance) COMPREHENSIVE METABOLIC PANEL Routine 07/22/2024 1:04 PM TREASURY REPRESENTATIVE MGUS (monoclonal gammopathy of unknown significance) from Last 3 Months Results * (ABNORMAL) KAPPA/LAMBDA LIGHT CHAINS FREE WITH RATIO, SERUM (07/22/2024 1:04 PM TREASURY REPRESENTATIVE) [place] light chain, free 49.5(H) 3.3 - 19.4 mg/L [facility] Lambda light chain, free 23.5 5.7 - 26.3 mg/L [facility] [place]/Lambda light chains free with ratio 2.11(H) 0.26 - 1.65 [facility] Comment: Free kappa/lambda ratio in serum of normal individuals is 0.26-1.65. Excess production of free kappa or lambda chains can alter this ratio. Monoclonal free light chains are found in serum of patients with multiple myeloma, Waldenstrom's macroglobulinemia, mu-heavy chain disease, primary amyloidosis, light chain deposition disease, monoclonal gammopathy of undetermined significance, and lymphoproliferative disorders. Measurement of free light chain concentration in serum is useful for diagnosis, prognosis, monitoring disease activity and following response to therapy of these disorders. Blood 07/22/2024 1:04 PM TREASURY REPRESENTATIVE 07/22/2024 1:04 PM TREASURY REPRESENTATIVE us Rocky Jones DO LAB BLOOD ORDERABLES Final R esult [facility] [address] [place] [address] * (ABNORMAL) CBC with auto differential (07/22/2024 1:04 PM TREASURY REPRESENTATIVE) WBC 4.8 3.8 - 10.8 Thousand/u L [facility] RBC, POC 3.70(L) 3.80 - 5.10 Million/uL [facility] Hgb 11.9 11.7 - 15.5 g/dL [facility] Hct 37.7 35.0 - 45.0 % [facility] MCV 101.9(H) 80.0 - 100.0 fL [facility] MCH 32.2 27.0 - 33.0 pg [facility] MCHC 31.6(L) 32.0 - 36.0 g/dL [facility] Comment: For adults, a slight decrease in the calculated MCHC value (in the range of 30 to 32 g/dL) is most likely not clinically significant; however, it should be interpreted with caution in correlation with other red cell parameters and the patient's clinical condition. Rdw 11.8 11.0 - 15.0 % [facility] Platelets 225 140 - 400 Thousand/u L [facility] MPV 10.5 7.5 - 12.5 fL [facility] Neutrophils, abs 2,774 1,500 - 7,800 cells/uL [facility] Lymphocytes, abs 1,464 850 - 3,900 cells/uL [facility] Monocyte abs 355 200 - 950 cells/uL [facility] Eosinophils, abs 154 15 - 500 cells/uL [facility] Basophils, abs 53 0 - 200 cells/uL [facility] Neutrophils 57.8 % [facility] Lymphocyte pct 30.5 % [facility] Monocytes 7.4 % [facility] Eosinophils 3.2 % [facility] Basophils 1.1 % [facility] Blood 07/22/2024 1:04 PM TREASURY REPRESENTATIVE 07/22/2024 1:04 PM TREASURY REPRESENTATIVE Rocky Jones LAB BLOOD ORDERABLES Final R esult [facility] [address] [place] [address] * IgA (07/22/2024 1:04 PM TREASURY REPRESENTATIVE) [facility] Immunoglobulin A 252 70 - 320 mg/dL [email or web address] Blood 07/22/2024 1:04 PM TREASURY REPRESENTATIVE 07/22/2024 1:04 PM TREASURY REPRESENTATIVE Rocky Jones LAB BLOOD ORDERABLES Final R esult [facility] [address] [place] [address] * (ABNORMAL) Comprehensive metabolic panel (07/22/2024 1:04 PM TREASURY REPRESENTATIVE) [facility] Glucose 91 65 - 99 mg/dL [facility] Comment: Fasting reference interval BUN 37(H) 7 - 25 mg/dL [facility] [place] Creatinine 2.17(H) 0.60 - 0.95 mg/dL [facility] eGFR 21(L) > OR = 60 mL/min/1.7 3m2 [facility] BUN/creat ratio 17 6 - 22 (calc) [facility] Sodium 141 135 - 146 mmol/L [facility] Potassium, pl 4.3 3.5 - 5.3 mmol/L [facility] Chloride 104 98 - 110 mmol/L [facility] CO2 28 20 - 32 mmol/L [facility] Calcium 9.9 8.6 - 10.4 mg/dL [facility] Protein, sr 6.2 6.1 - 8.1 g/dL [facility] Albumin 3.9 3.6 - 5.1 g/dL [facility] GLOBULIN 2.3 1.9 - 3.7 g/dL (calc) [facility] Alb/glob ratio 1.7 1.0 - 2.5 (calc) [facility] Bilirubin, total 0.5 0.2 - 1.2 mg/dL [facility] Alk phos 69 37 - 153 U/L [facility] AST 28 10 - 35 U/L [facility] ALT (SGPT) 23 6 - 29 U/L [facility] Blood 07/22/2024 1:04 PM TREASURY REPRESENTATIVE 07/22/2024 1:04 PM TREASURY REPRESENTATIVE us Rocky Jones DO LAB BLOOD ORDERABLES Final R esult [facility] [address] [place] [address] from Last 3 Months Insurance [facility]ETNA MEDICARE GOLD [facility]IC[facility] MEDICARE [facility] Care Teams Silviculture Professor Relationship Specialty Start Date End Date Nicolas Sandhu MD [address] [place] [address] PCP - General Family Medicine 08/13/18 Omari Lozada MD [address] [place] [address] Referring Physician Nephrology 08/17/18
--- OUTSIDE RECORDS SUMMARY | 2024-10-04 18:01 | XMS_ITS | Encounter Summary ---
Author Organization [facility] Address [address] [facility] [place] [address] Care Team Providers Care Group Fitness Department Head Name Role Phone Nicolas Sandhu MD Primary Care Provider [phone] Encounter Details Date Type Department Care Team (Late st Contact Info) Description 12/04/2020 Lab Requisition [facility] [address] [facility] [place] [address] Dale Blanc MD [address] [place] [address] Social History Tobacco Use Types Packs/Day Years Used Date Smoking Tobacco: Never Assessed Sex and Gender Information Value Date Recorded Sex Assigned at Not on file Gender Identity Not on file Sexual Orientation Not on file documented as of this encounter Plan of Treatment Not on file documented as of this encounter Procedures Procedure Name Priority Date/Time Associated Diagnosis Comments DERMATOPATHOLOGY Routine 11/30/2020 3:33 AM CDT documented in this encounter Results * DERMATOPATHOLOGY (11/30/2020 3:33 AM CDT) Case Report Dermatopathology Report Case: [id number] Authorizing Provider: Dale Blanc MD Collected: 11/30/2020 03:33 AM Ordering Location: [facility] Received: 12/04/2020 06:16 AM Pathologist: Shoshana Harden MD Specimens: A) - Skin, nasal tip B) - Skin, left medial malar cheek 5:38 PM CDT DERMATOPATHOLOGY LABORATORY Final Diagnosis Specimen A. SKIN, nasal tip: BASAL CELL CARCINOMA (C44.311) (see microscopic description and comment) Specimen B. 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 Path# [id number]. B: AK vs SCCA vs BCCA. Path# [id number]. 5:38 PM CDT DERMATOPATHOLOGY LABORATORY Gross Description Specimen A: Received is one formalin filled container labeled with the patient's name and designated nasal tip. The specimen consists of a shave biopsy measuring [id number]. Jar 0. Specimen B: Received is one formalin filled container labeled with the patient's name and designated left medial malar cheek. The specimen consists of a shave biopsy measuring 1d0p0ni. Jar 0. 5:38 PM CDT DERMATOPATHOLOGY LABORATORY Microscopic Description Specimen A. SKIN, nasal tip: The specimen consists of aggregates of basaloid cells, located within the superficial dermis, with high nuclear to cytoplasmic ratio and peripheral palisading. COMMENT: The small size of the specimen limits subtyping of the lesion. Specimen B. SKIN, left medial malar cheek: Sections reveal parakeratosis, acanthosis and keratinocyte dysmaturation which is most prominent in the lower epidermis but focally extends through the entire epidermis. 5:38 PM CDT DERMATOPATHOLOGY LABORATORY Disclaimer An external and internal positive and negative controls are appropriate for the histochemical, immunohistochemical and immunofluorescence stain(s) in this case (if any), except where stated explicitly. The performance characteristics of the stain(s) cited in this report were developed and its performance characteristic determined by the Dermatopathology Laboratory at [facility], directed by Dr. Manuelito Mckinley. These tests need not be, and therefore are not, approved by the [place] Food and Drug Administration. The tests are used for clinical purposes. Billing Codes Specimen Charges Stain Charges 24075 11053 1 1 5:38 PM CDT DERMATOPATHOLOGY LABORATORY Embedded Images 5:38 PM CDT DERMATOPATHOLOGY LABORATORY Pathology/Cytology TISSUE SPECIMEN FROM SKIN / Unknown 11/30/2020 3:33 AM CDT 12/04/2020 6:16 AM CDT Miscellaneous samples (specimen) TISSUE SPECIMEN FROM SKIN / Unknown 11/30/2020 3:33 AM CDT 12/04/2020 6:16 AM CDT Dale Blanc MD LAB - PATHOLOGY/CYTO LOGY ORDERABLES DERMATOPATHOLOGY LABORATORY [facility] - Department of Dermatology [facility] Medicine [address] [place] [address], [address] [phone] documented in this encounter Visit Diagnoses Not on filedocumented in this encounter Care Teams Group Fitness Department Head Relationship Specialty Start Date End Date Nicolas Sandhu MD [address] [place] [address] PCP - General 03/02/21 documented as of this encounter
--- OUTSIDE RECORDS SUMMARY | 2024-10-04 18:01 | XMS_ITS | Clinical Summary ---
Author Organization [facility] 8 [facility] Address 8 [facility] [address] [place] [address] Phone Care Team Providers Care Dyeing Machine Tender Name Role Phone Nicolas Sandhu MD Primary Care Provider Omari Lozada MD Unavailable [phone] Allergies Active Allergy Reactions Criticality Noted Date [...] (monoclonal gammopathy of unknown significa nce) 08/14/2018 Encounters Date Type Department Care Team Description 08/19/2024 Orders Only [facility] [address] [place] [address] Marley Villegas RN MGUS (monoclonal gammopathy of unknown significance) (Primary Dx) 08/18/2024 3:00 PM PATENT AGENT Office Visit [facility] [address] [place] [address] [address] [place] [address] Rocky Jones, MGUS (monoclonal gammopathy of unknown significance) (Primary Dx) 08/04/2024 Telephone [facility]8 [facility] [address] [place] [address] Rica Myles, [facility] 07/15/2024 Telephone [facility]8 [facility] [address] [place] [address] Chio Chen, NILO from Last 3 Months Immunizations Immunization Administration Dates Next Due Influenza, Trivalent, High D ose, Split, Preservative Free, Intramuscular 08/11/2019 Influenza, Unspecified 04/26/2018 Pneumococcal Polysaccharide PPV23 07/27/2012 ZOSTER LIVE 08/07/2017 Medical History Medical History Date Comments Cancer (HCC) Chest pain Chronic kidney disease Family History Medical History Relation Name Comments No Known Problems Brother No Known Problems Father No Known Problems Father's Brother No Known Problems Father's Sister No Known Problems Maternal Grandfather No Known Problems Maternal Grandmother No Known Problems Mother No Known Problems Mother's Brother No Known Problems Mother's Sister No Known Problems Other No Known Problems Paternal Grandfather No Known Problems Paternal Grandmother No Known Problems Sister Relation Name Status Comments Brother Father Father's Brother Father's Sister Maternal Grandfather Maternal Grandmother Mother Mother's Brother Mother's Sister Other Paternal Grandfather Paternal Grandmother Sister Social History Tobacco Use Types Packs/Day Years [...] on file Legal Sex Female 11:56 AM PATENT AGENT Gender Identity Not on file Sexual Orientation Not on file Obstetrics History Last Filed Vital Signs Vital Sign Reading Time Taken Comments Blood Pressure 135/72 08/18/2024 2:54 PM PATENT AGENT Pulse 64 08/18/2024 2:54 PM PATENT AGENT Temperature 36.7 C (98 F) 08/18/2024 2:54 PM PATENT AGENT Respiratory Rate 18 08/18/2024 2:54 PM PATENT AGENT Oxygen Saturation 96% 08/18/2024 2:54 PM PATENT AGENT Inhaled Oxygen Concentration - - Weight 66.2 kg (145 lb 14.4 oz) 08/18/2024 2:54 PM PATENT AGENT Height 157.5 cm (5' 2 ) 08/18/2024 2:54 PM PATENT AGENT w shoes Body Mass Index 26.69 08/18/2024 2:54 PM PATENT AGENT Plan of Treatment Health Maintenance Due Date Last Done Comments Depression Screening 1935 Fall Risk Assessment 1935 DTaP/Tdap/Td Vaccine (1 - Tdap) 10/06/1946 Hepatitis B Screening 10/06/1953 Well Visit 65+ 10/06/2000 Pneumococcal vaccine 65+ (2 of 2 - PCV) 07/27/2013 0 07/27/2012 Zoster Vaccine (2 of 3) 10/02/2017 08/07/2017 Influenza Vaccine (#1) 2024 08/11/2019, 2017 Procedures Procedure Name Priority Date/Time Associated Diagnosis Comments IGA Routine 07/22/2024 1:04 PM PATENT AGENT MGUS (monoclonal gammopathy of unknown significance) KAPPA/LAMBDA LIGHT CHAINS FREE WITH RATIO, SERUM Routine 07/22/2024 1:04 PM PATENT AGENT MGUS (monoclonal gammopathy of unknown significance) CBC WITH AUTO DIFFERENTIAL Routine 07/22/2024 1:04 PM PATENT AGENT MGUS (monoclonal gammopathy of unknown significance) COMPREHENSIVE METABOLIC PANEL Routine 07/22/2024 1:04 PM PATENT AGENT MGUS (monoclonal gammopathy of unknown significance) from Last 3 Months Results * (ABNORMAL) KAPPA/LAMBDA LIGHT CHAINS FREE WITH RATIO, SERUM (07/22/2024 1:04 PM PATENT AGENT) Pathologist [facility] Meyer light chain, free 49.5(H) 3.3 - 19.4 mg/L [email or web address] Lambda light chain, free 23.5 5.7 - 26.3 mg/L [facility] Meyer/Lambda light chains free with ratio 2.11(H) 0.26 - 1.65 [facility] Comment: Free kappa/lambda ratio in serum of [...] of these disorders. Blood 07/22/2024 1:04 PM PATENT AGENT 07/22/2024 1:04 PM PATENT AGENT us Rocky Jones DO LAB BLOOD ORDERABLES Final R esult [facility] [address] [phone] * (ABNORMAL) CBC with auto differential (07/22/2024 1:04 PM PATENT AGENT) Pathologist [facility] WBC 4.8 3.8 - 10.8 Thousand/u L [...] 11.8 11.0 - 15.0 % [facility] [place] Platelets 225 140 - 400 Thousand/u L [facility] MPV 10.5 7.5 - 12.5 fL [facility] Neutrophils, abs 2,774 1,500 - 7,800 cells/uL [facility] Lymphocytes, abs 1,464 850 - 3,900 cells/uL [facility] Monocyte abs 355 200 - 950 cells/uL [facility] Eosinophils, abs 154 15 - 500 cells/uL [facility] Basophils, abs 53 0 - 200 cells/uL [facility] Neutrophils 57.8 % [facility] Lymphocyte pct 30.5 % [facility] Monocytes 7.4 % [facility] Eosinophils 3.2 % [facility] Basophils 1.1 % [facility] Blood 07/22/2024 1:04 PM PATENT AGENT 07/22/2024 1:04 PM PATENT AGENT us Rocky Jones DO LAB BLOOD ORDERABLES Final R esult [facility] [address] [place] [address] * IgA (07/22/2024 1:04 PM PATENT AGENT) Immunoglobulin A 252 70 - 320 mg/dL [facility] Blood 07/22/2024 1:04 PM PATENT AGENT 07/22/2024 1:04 PM PATENT AGENT Rocky Jones DO LAB BLOOD ORDERABLES Final R esult [facility] [address] [address] [phone] * (ABNORMAL) Comprehensive metabolic panel (07/22/2024 1:04 PM PATENT AGENT) Pathologist [facility] Glucose 91 65 - 99 mg/dL [facility] Comment: Fasting reference interval BUN 37(H) 7 - 25 mg/dL [facility] [place] Creatinine 2.17(H) 0.60 - 0.95 mg/dL [facility] eGFR 21(L) > OR = 60 mL/min/1.7 3m2 [facility] BUN/creat ratio 17 6 - 22 (calc) [facility] Sodium 141 135 - 146 mmol/L [facility] Potassium, pl 4.3 3.5 - 5.3 mmol/L [facility] Chloride 104 98 - 110 mmol/L [facility] CO2 28 20 - 32 mmol/L [facility] Calcium 9.9 8.6 - 10.4 mg/dL [facility] Protein, sr 6.2 6.1 - 8.1 g/dL [facility] Albumin 3.9 3.6 - 5.1 g/dL [facility] [place] GLOBULIN 2.3 1.9 - 3.7 g/dL (calc) [facility] [place] Alb/glob ratio 1.7 1.0 - 2.5 (calc) [facility] Bilirubin, total 0.5 0.2 - 1.2 mg/dL [facility] Alk phos 69 37 - 153 U/L [facility] [place] AST 28 10 - 35 U/L [facility] ALT (SGPT) 23 6 - 29 U/L [facility] [place] Blood 07/22/2024 1:04 PM PATENT AGENT 07/22/2024 1:04 PM PATENT AGENT Rocky Jones DO LAB BLOOD ORDERABLES Final R esult [facility] [address] [place] [address] from Last 3 Months Insurance [facility] ALICE [facility] MEDICARE [facility]OLD [facility] MEDICARE [facility] [employer] MEDICARE GOLD Care Teams Dyeing Machine Tender Relationship Specialty Start Date End Date Nicolas Sandhu MD [address] [place] [address] PCP - General Family Medicine 08/13/18 Omari Lozada MD [address] [place] [address] Referring Physician Nephrology 08/17/18
--- OUTSIDE RECORDS SUMMARY | 2024-10-04 18:01 | XMS_ITS | Referral Summary ---
Author Organization [facility] Address [address] [facility] [place] [address] Care Team Providers Care Engineer Specialist Name Role Phone Nicolas Sandhu MD Primary Care Provider [phone] Source Comments [facility],non-owned Affiliates and Associated Physician Practices is amultiple site organization consisting of ambulatory clinics and hospital sitesin [place], [place], [place] and [place]. This disclosure is being madepursuant to the Care Everywhere program and may not contain all information available regarding this patient. Last updated 18.[facility] [employer] Social History Tobacco Use Types Packs/Day Years Used Date Smoking Tobacco: Never Assessed Sex and Gender Information Value Date Recorded Sex Assigned at Not on file Gender Identity Not on file Sexual Orientation Not on file Plan of Treatment Not on file Care Teams Engineer Specialist Relationship Specialty Start Date End Date Nicolas Sandhu MD [address] [place] [address] PCP - General 03/02/21
--- OUTSIDE RECORDS SUMMARY | 2024-10-04 18:01 | XMS_ITS | Encounter Summary ---
Author Organization [facility] Facility Care Team Providers Care Crm Business Analyst Name Role Phone Nicolas aSndhu MD Primary Care Provider Omari Lozada MD Unavailable [phone] Omari Lozada MD Unavailable [phone] Encounter Details Date Type Department Care Team (Latest Contact Info) Description 10/29/2015 Orders Only [facility] ProviderMukund MD [address] [place] [address] Social History Tobacco Use Types Packs/Day Years Used Date Smoking Tobacco: Never Assessed Comments Unknown Sex and Gender Information Value Date Recorded Sex Assigned at Not on file 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 Historical Provider Final Res ult documented in this encounter Visit Diagnoses Not on filedocumented in this encounter Care Teams Crm Business Analyst Relationship Specialty Start Date End Date Nicolas Sandhu MD [address] [facility] [address] [place], [place] [id number] PCP - General Family Medicine 08/13/18 Omari Lozada MD [address] [facility] [address] [place] [address] Referring Physician Nephrology 08/17/18 08/17/18 Omari Lozada MD [address] [facility] [address] [place] [address] Referring Physician Nephrology 08/17/18 documented as of this encounter
--- OUTSIDE RECORDS SUMMARY | 2024-10-04 18:01 | XMS_ITS | Encounter Summary ---
Author Organization [facility] Facility Care Team Providers Care Associate Director Finance Name Role Phone Nicolas Sandhu MD Primary Care Provider Omari Lozada MD Unavailable [phone] Omari Lozada MD Unavailable [phone] Encounter Details Date Type Department Care Team (Latest Contact Info) Description 04/19/2015 Orders Only [facility] ProviderMukund MD [address] [place] [address] Social History Tobacco Use Types Packs/Day Years Used Date Smoking Tobacco: Never Assessed Comments Unknown Sex and Gender Information Value Date Recorded Sex Assigned at Not on file 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 Historical Provider Final Res ult documented in this encounter Visit Diagnoses Not on filedocumented in this encounter Care Teams Associate Director Finance Relationship Specialty Start Date End Date Nicolas Sandhu MD [address] [facility] [address] [place], [place] [id number] PCP - General Family Medicine 08/13/18 Omari Lozada MD [address] [facility] [address] [place] [address] Referring Physician Nephrology 08/17/18 08/17/18 Omari Lozada MD [address] [facility] [address] [place] [address] Referring Physician Nephrology 08/17/18 documented as of this encounter
--- OUTSIDE RECORDS SUMMARY | 2024-10-04 18:01 | XMS_ITS | Patient Health Summary ---
Author Organization [facility] [employer] (Inspect Manager) Address [address] [place] [address] Care Team Providers Care Plunger Shovel Operator Name Role Phone Nicolas Sandhu MD Primary Care Provider [phone] Note from [facility],non-owned Affiliates and Associated Physician Practices is amultiple site organization consisting of ambulatory clinics and hospital sitesin [place], [place], [place] and [place]. This disclosure is being madepursuant to the Care Everywhere program and may not contain all information available regarding this patient. 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 B: [place] vs SCCA vs BCCA. Path# [id number]. 5:38 PM [facility] DERMATOPATHOLOGY LABORATORY Gross Description Specimen A: Received is one formalin filled container labeled with the patient's name and designated nasal tip. The specimen consists of a shave biopsy measuring [id number]. Jar 0. Specimen B: Received is one formalin filled container labeled with the patient's name and designated left medial malar cheek. The specimen consists of a shave biopsy measuring [id number]. Jar 0. 5:38 PM [facility] DERMATOPATHOLOGY LABORATORY Microscopic Description Specimen A. SKIN, [...] extends through the entire epidermis. 5:38 PM T DERMATOPATHOLOGY LABORATORY Disclaimer An external and internal positive and negative controls are appropriate for the histochemical, immunohistochemical and immunofluorescence stain(s) in this case (if any), except where stated explicitly. The performance characteristics of the stain(s) cited in this report were developed and its performance characteristic determined by the Dermatopathology Laboratory at [facility], directed by Dr. Manuelito Mckinley. These tests need not be, and therefore are not, approved by the [place] Food and Drug Administration. The tests are used for clinical purposes. Billing Codes Specimen Charges Stain Charges 03221 86505 1 1 5:38 PM CDT DERMATOPATHOLOGY LABORATORY Embedded Images 5:38 PM T DERMATOPATHOLOGY LABORATORY Pathology/Cytology TISSUE SPECIMEN FROM SKIN / Unknown 11/30/2020 3:33 AM CDT 12/04/2020 6:16 AM CDT Miscellaneous samples (specimen) TISSUE SPECIMEN FROM SKIN / Unknown 11/30/2020 3:33 AM CDT 12/04/2020 6:16 AM CDT Dale Blanc MD LAB - PATHOLOGY/CYTO LOGY ORDERABLES DERMATOPATHOLOGY LABORATORY [facility] - Department of Dermatology [facility] Medicine [address] [place] [address], [address] [phone] Care Teams Plunger Shovel Operator Relationship Specialty Start Date End Date Nicolas Sandhu MD [address] [place] [address] PCP - General 03/02/21
--- OUTSIDE RECORDS SUMMARY | 2024-10-04 18:01 | XMS_ITS | Clinical Summary ---
Author Organization [facility] [employer] Address [address] [facility] [place] [address] Care Team Providers Care Driver Material Handler Name Role Phone Nicolas Sandhu MD Primary Care Provider [phone] Source Comments [facility] [employer],non-owned Affiliates and Associated Physician Practices is amultiple site organization consisting of ambulatory clinics and hospital sitesin [place], [place], [place] and [place]. This disclosure is being madepursuant to the Care Everywhere program and may not contain all information available regarding this patient. Last updated 18.[facility] [employer] Social History Tobacco Use Types Packs/Day Years Used Date Smoking Tobacco: Never Assessed Sex and Gender Information Value Date Recorded Sex Assigned at Not on file Gender Identity Not on file Sexual Orientation Not on file Plan of Treatment Health Maintenance Due Date Last Done Comments BONE DENSITY TESTING 1935 DTAP/TDAP/TD VACCINES (1 - Tdap) 10/06/1954 PNEUMOCOCCAL VACCINE 50+ (1 of 1 - PCV) 10/06/1985 ZOSTER VACCINE (1 of 2) 10/06/1985 Respiratory Syncytial Virus (RSV) Vaccine Pt: or over 60 yrs (1 - 1-dose 75+ series) 10/06/2010 COVID-19 VACCINE (2023-2 5 season) 2024 INFLUENZA VACCINE (#1) 2024 DEPRESSION SCREENING 07/27/2024 HEPATITIS B VACCINE Aged Out No longe r eligible based on patient's age to complete this topic HIB VACCINE Aged Out No longer eligi ble based on patient's age to complete this topic HPV VACCINE Aged Out No longer eligi ble based on patient's age to complete this topic MENINGOCOCCAL (Group B) VACCINE Aged Out No longer eligible based on patient's age to complete this topic MENINGOCOCCAL VACCINE Aged Out No miki karolina eligible based on patient's age to complete this topic Care Teams Driver Material Handler Relationship Specialty Start Date End Date Nicolas Sandhu MD [address] [place] [address] PCP - General 03/02/21
--- OUTSIDE RECORDS SUMMARY | 2024-10-04 18:01 | XMS_ITS | Clinical Summary ---
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 Gender Identity Not on file Sexual Orientation Not on file Plan of Treatment Health Maintenance Due Date Last Done Comments DEXA Bone Density 1935 Hepatitis C Virus (HCV) Screening 1935 TdaP Immunization 1935 Pneumococcal Immunization (50+ years) (1 of 1 - PCV) 10/06/1985 Zoster Immunization (1 of 2) 10/06/1985 Respiratory Syncytial Virus (RSV) Immunization (Adult) (1 - 1-dose 75+ series) 10/06/2010 Influenza Immunization (#1) 03/27/202404/26, 05/21/2018, 05/22/2017, Additional history exists SARS-COV-2 Immunization (2023- season) 2024 Hepatitis B Immunization Aged Out No longer eligible based on patient's age to complete this topic Meningococcal Immunization (ACWY) Aged Out No longer eligible based on patient's age to complete this topic Rotavirus Immunization Aged Out No lo nger eligible based on patient's age to complete this topic
== END 2024-10-04 16:07 | disposition home or self-care (01) ==
LOC: ANHIMG 16:11
PROVIDERS: PCP Family Medicine; Visit Provider Family Medicine
DX: R05.9 Cough, unspecified (principal)
CPT/HCPCS: 71046

== ENCOUNTER 2025-06-19 13:20 | Emergency (ER) | payer MEDICARE, SELFPAY ==
[2025-06-19 13:28] VITALS: BP 145/74; PULSE 93; RESP 14; TEMP 36.6; O2SAT 100
--- NOTE | 2025-06-19 13:31 | ED_ITS ---
HPI - URI/Sore Throat General Chief Complaint: Upper Respiratory Infection Stated Complaint: cough Time Seen by Provider: 06/19/25 13:30 Source: patient, RN notes reviewed and old records reviewed Mode of arrival: ambulatory Limitations: no limitations History of Present Illness HPI Narrative: 89-year-old female presents to the [facility] with a 2 day 3 day history of a cough, sometimes a tickle in her throat. States that she did try Delsym 1 time yesterday with no relief. Patient denies any fevers. Patient denies chest pain, shortness of breath. patient denies any other symptoms. Related Data Home Medications ?Medication ?Instructions ?Recorded ?Confirmed ?Last Taken ?Type latanoprost 0.005 % eye drops 11/09/19 06/04/25 Unkno wn History ketorolac 0.5 % eye drops drp RIGHT EYE 12/23/2306/04 Unknown History amlodipine 5 mg tablet 10 mg PO DAILY 10/04/2404/20 Unknown History lactobacillus combination no.4 3 3,000 mmu cells PO DA TRACIE 06/19/25 Unknown History billion cell capsule (Probiotic) [id number] 8 mg-folic 400 1 tablet PO DAILY Unknown History mcg-K 50 mcg-lutein 300 mcg tablet ([facility] Women 50 Plus) Allergies Allergy/AdvReac Type Severity Reaction Status Date / Time adhesive tape Allergy Unknown blister Verified 06/19/25 13:38 azithromycin Allergy Unknown Vomiting Verified 06/19/25 13:38 Review of Systems Review of Systems: All systems reviewed & are unremarkable except as noted in HPI and below Constitutional: Constitutional: Reports no additional constitutional complaints ENT: Reports system reviewed and no additional complaints, except as documented Cardiovascular: Cardiovascular: Reports no additional cardiovascular complaints, Denies chest pain and Denies dyspnea Respiratory: Respiratory: Reports as per HPI, Reports no additional resp iratory complaints, Denies chest congestion, Reports cough and Denies dyspnea Musculoskeletal: Musculoskeletal: Reports no additional musculoskeletal complaints Integumentary/Breasts: Skin/Breast: Reports system reviewed and no additional complaints, except as docu [facility] Past Medical History Medical History Chronic kidney disease, stage 4 (severe) Anxiety CKD (chronic kidney disease), stage III Diverticulitis of large intestine without perforation or abscess Glaucoma Gout History of breast cancer Pure hypercholesterolemia Surgical History Surgical History History of right mastectomy History of cholecystectomy H/O mastectomy Family History Family History Father Family history of diabetes mellitus in first degree relative Sibling Family history of diabetes mellitus in first degree relative Mother Family history of coronary artery disease Social History Social History Smoking status: Never smoker Alcohol intake: never Substance use: never Do You Feel Safe in your Home?: Yes Lack of Transportation: No Lack of Food: Never True Current Housing: I Have Housing Concerned About Future Housing: No Difficulty Paying Gas/Electric Bills: No Difficulty Paying for Meds: No Currently Unemployed: No Education: High School Diploma/GED Difficulty w/ Childcare or Family Care: No Living arrangements: alone Occupation/Education: retired Gender identity (if verbalized by the patient): Female Sexual Orientation (if Verbalized by the Patient): Straight or Heterosexual Comments At the time of my signature, I reviewed and agree with the nursing past medical, surgical, social, and family history. There is no relevant family history pertinent to the patient complaint. Exam Const: General: cooperative, healthy appearing, comfortable, no acute distress, well developed, alert and well nourished Nutritional Appearance: well nourished Orientation/consciousness: patient oriented x3 Limitations: no limitations HENMT: Head: normal to inspection Ears: hearing grossly normal bilaterally, external ears normal, TM's normal bilaterally, EAC's normal, mastoids normal and no periauricular adenopathy Face and sinus: normal facial exam and face symmetric Mouth: Yes Normal oral and palatal mucosa present, Yes lip normal, Yes tongue normal and Yes moist mucous membranes Throat: posterior oropharynx normal, uvula midline, postnasal drainage and no uvular edema Eyes: General: appearance normal, both eyes and all related structures Alignment and Position: alignment normal Neck: Neck: normal visual inspection, full ROM, no lymphadenopathy and no meningeal signs Chest: Chest palpation & inspection: normal inspection of the chest Resp: Effort & Inspection: normal respiratory effort and able to speak in complete sentences Auscultation: clear to auscultation bilaterally, no crackles, no rales, no rhonchi and no wheezes Cardio: Rate: regular rate Skin: General skin exam: normal color and no rashes or lesions noted Neuro: General: patient oriented x3, gait normal, moves all extremities and no meningeal signs Cognition (Neuro): normal cognition Speech: normal speech Gait exam (Neuro): Normal gait present Extrem: General: normal to inspection, full ROM, capillary refill normal and normal gait Psych: Appearance: grossly normal and well kempt Mental Status: mental status grossly normal Speech and movement: Normal speech and movement present and Clear speech present Affect: normal affect Attitude: cooperative Course Course Level of Care: Express Care Visit Vital Signs Vital signs: Vital Signs Temperature 97.9 F 06/19/25 13:28 Pulse Rate 93 06/19/25 13:28 Respiratory Rate 14 06/19/25 13:28 Blood Pressure 145/74 H 06/19/25 13:28 Pulse Oximetry 100 06/19/25 13:28 Oxygen Delivery Room Air 06/19/25 13:28 Temperature 97.9 F 06/19/25 13:28 Pulse Rate 93 06/19/25 13:28 Respiratory Rate 14 06/19/25 13:28 Blood Pressure 145/74 H 06/19/25 13:28 Pulse Oximetry 100 06/19/25 13:28 Oxygen Delivery Room Air 06/19/25 13:28 Reviewed MDM - URI/Sore Throat MDM Narrative Medical decision making narrative: Patient sitting in exam room. Patient is nontoxic, vitals stable. Patient presents with cough for 2-3 days. Denies any chest pain shortness of breath. Reports it is a dry cough, nonproductive. No acute findings other than postnasal drainage noted on exam. Patient is appropriate for outpatient treatment of viral URI Discharge instructions reviewed with patient, as well as provided in writing per nursing staff. The instructions also include specific and strict return/GO TO THE ER as well as f/u information. All questions have been answered, and the patient deny any further questions with discharge and discharge plan. Some parts of this dictation were generated by voice recognition software and may contain typographical and/or grammatical inaccuracies. Differential Diagnosis Differential diagnosis: Likely upper respiratory infection, otitis media, sinusitis, viral infection, bronchitis, influenza and pharyngitis Critical Care Time Critical Care Time Critical Care Time: No Discharge Plan Discharge Clinical Impression: PND (post-nasal drip) Upper respiratory infection Qualifiers: URI type: unspecified viral URI Qualified Code(s): J06.9 - Acute upper respiratory infection, unspecified Patient Disposition: Home Condition: Stable Instructions: Antibiotic Form, Postnasal Drip (DC) Additional Instructions: Your symptoms are likely due to a viral illness, which is not treated with antibiotics. Typically viral infections last 7-10 days, can linger for couple of weeks. It is very important to treat your symptoms. Drink plenty of water, Gatorade, Pedialyte, ice pops or Jell-O. -Alternate Tylenol and Motrin per package directions for fever or pain. You can alternate every 4 hours -Antihistamine medication such as Zyrtec/Claritin/Cecilia during the day can help improve symptoms. -doing daily nasal irrigations can help relieve pressure your sinuses. Things like a Neti pot -Use Flonase daily to help reduce the inflammation and dry up your sinuses. -You can also use Coricidin HBP. Be sure to drink plenty of water with this medication at least 8 ounces with every dose and it is important to drink 8 to 10 glasses of water per day. Water is a natural decongestant -Eat and drink things that are easy to swallow, like tea or soup, or popsicles. -Oral rinses such as: Salt water gargles and/or may use topical anesthetic (eg. Chloraseptic spray) or lozenges to relieve dryness or throat pain). -Frequent hand washing or hand professor of biology is one of the best ways to prevent spread of infection. -Using a vaporizer or humidifier at night will also help thin secretions and help with coughing up phlegm. -Follow up with primary care provider in 7-10 days if condition is not improving - For new or worsening symptoms go directly to the nearest ER Patient Language: Amharic Prescriptions: No Action Probiotic 3 billion cell capsule 3,000 mmu cells PO DAILY Rx Instructions: administer with a meal [facility] 50 Plus 8 mg iron-400 mcg-50 mcg tablet 1 tablet PO DAILY amlodipine 5 mg tablet 10 mg PO DAILY ketorolac 0.5 % drops RIGHT EYE latanoprost 0.005 % drops valsartan 80 mg tablet 80 mg PO DAILY Qty: 90 3RF pravastatin 40 mg tablet See Rx Instructions .ROUTE .COMPLEX Qty: 90 2RF Dose Instruction: Take 1 tablet by mouth once daily Rx Instructions: Take 1 tablet by mouth once daily allopurinol 100 mg tablet 100 mg PO DAILY Qty: 90 2RF Follow-up/Referrals: Nicolas Sandhu MD [Primary Care Provider, [facility]] - 1 Week Time of Disposition: 13:39
== END 2025-06-19 13:48 | disposition home or self-care (01) ==
PROVIDERS: Emergency Provider Nurse Practitioner; PCP Family Medicine
DX: R09.82 Postnasal drip (principal); J06.9 Acute upper respiratory infection, unspecified; N18.4 Chronic kidney disease, stage 4 (severe); E78.00 Pure hypercholesterolemia, unspecified; M10.9 Gout, unspecified; H40.9 Unspecified glaucoma; Z85.3 Personal history of malignant neoplasm of breast; Z90.11 Acquired absence of right breast and nipple
CPT/HCPCS: 99211; G0463